=== PATIENT | male | born 1960 | race Caucasian/White ===

== ENCOUNTER 2023-07-10 08:43 | Day surgery (SDC) | payer OTHER, SELFPAY ==
--- NOTE | 2023-07-10 | PATH_ITS ---
[facility] Accession Number: [id number] No. of containers..01 Tissue . 01 Material submitted: . colon - POLYP AT 71 . 01 Diagnosis: Colon, Polyp at 70: Tubular adenoma. JNL 07/12/2023 1503 Local . 01 Electronically signed: . Josette Mayberry MD, Pathologist NPI- [id number] . 01 Gross description: . POLYP AT 70: Received in formalin are 3 fragment(s) of lucero, soft tissue measuring 0.1 x 0.1 x 0.1 cm to 0.3 x 0.3 x 0.2 cm submitted entirely in 1 cassette(s) /SUE 07/11/2023 1926 Local . 01 Pathologist provided ICD-10: D12.6 . 01 CPT . 654878 Specimen Comment: A courtesy copy of this report has been sent to [phone] Performed at: 01 [facility] [address] [place] [address], [place], [place] [id number] MD Gerardo Delcid MD Phone: [phone]
[2023-07-10 09:23] VITALS: BP 155/81; PULSE 55; RESP 16; TEMP 36.2; O2SAT 99
[2023-07-10] MEDS: LACTATED RINGERS 1,000 ML 42 ML IV (09:30)
--- NOTE | 2023-07-10 09:33 | PM.HP.1 ---
History of Present Illness History of Present Illness Date Patient Seen: 07/10/23 Chief complaint: Screening Colonoscopy Narrative: Screening colonoscopy at a 10 year interval ON LICENSE OF [facility] Surgical History (Updated 10/01/17 @ 06:10 by Conversion Provider) History of carpal tunnel repair Family History (Updated 12/18/16 @ 00:00 by Conversion Provider) Father Heart disease Hypertension High cholesterol Grandfather Stroke Mother Mental health problem Grandmother Hypertension Social History Smoking Status: Never smoker alcohol intake: current Meds Home Medications and Allergies Home Medications Medication Instructions Recorded Confirmed Type levetiracetam 500 mg tablet 1,000 mg PO BID 07/10/23 07/10/23 History ([place]) Allergies Allergy/AdvReac Type Severity Reaction Status Date / Time No Known Drug Allergies Allergy Verified 07/10/23 09:19 Exam Vital Signs (past 8 hours): - 07/10/23 09:23 Temperature 97.2 F L Pulse Rate 55 L Respiratory Rate 16 Blood Pressure 155/81 H Pulse Oximetry 99 Oxygen Delivery Method Room Air Oxygen Delivery Method Room Air Narrative Exam Narrative: Oropharynx free of lesions Chest clear to auscultation percussion Cardiac exam reveals no S3 or murmur Assessment & Plan Assessment & Plan narrative: Screening colonoscopy to 10 year interval. Risks, benefits, alternatives have been explained.
--- NOTE | 2023-07-10 09:34 | PM.OP.COLON ---
Operative Date/Time/Diagnoses Date of procedure: 07/10/23 Pre-op diagnosis: See indication and findings Procedure & Clinicians Study performed: Colonoscopy Indications: Screening colonoscopy Surgeon: Luna Hernandez Procedure Notes Procedure in detail: After informed consent was obtained the patient was placed in left lateral decubitus position. The video colonoscope was introduced the rectum slowly advanced cecum. On slow withdrawal mucosa was carefully examined. The scope was removed. The patient tolerated procedure well. Blood loss none Complications none Sedation mac Findings 1. 5 mm polyp at 70 cm Jumbo biopsy x2 and removed completely 2. Otherwise negative colonoscopy to cecum 3. Both significant internal and external hemorrhoids. Will be in touch regarding his polyp most likely will need follow-up colonoscopy in 5-7 years. He inquired about having is hemorrhoids evaluated and I would suggest he see Dr. [facility].
[2023-07-10 10:20] VITALS: BP 119/74; PULSE 66; RESP 15; TEMP 36.2; O2SAT 94
[2023-07-10 10:25] VITALS: BP 122/72; PULSE 51; RESP 12; TEMP 36.2; O2SAT 97
[2023-07-10 10:32] VITALS: BP 138/79; PULSE 63; RESP 19; O2SAT 97
[2023-07-10 10:40] VITALS: BP 147/87; PULSE 62; RESP 15; TEMP 36.2; O2SAT 97
== END 2023-07-10 10:51 | disposition home or self-care (01) ==
PROVIDERS: PCP Family Medicine; Referring Provider Internal Medicine Gastroenterology; Visit Provider Internal Medicine Gastroenterology
PROC: 0DJD8ZZ Inspection of Lower Intestinal Tract, Via Natural or Artificial Opening Endoscopic (ICD-10-PCS; CPT 45378; principal; 2023-07-10 10:00)
DX: Z12.11 Encounter for screening for malignant neoplasm of colon (principal); K64.8 Other hemorrhoids; K64.4 Residual hemorrhoidal skin tags; K63.5 Polyp of colon
CPT/HCPCS: 45380; J2704